=== PATIENT | female | born 1955 ===

== ENCOUNTER 2023-06-17 06:23 | Day surgery (SDC) | payer OTHER, SELFPAY ==
[2023-06-12 12:31] VITALS: BMI 23.7
[2023-06-12 14:26] LABS: Hematocrit 34.5 % (37.0-47.0); Hemoglobin 10.8 g/dL (12.0-16.0); Mean Corp Hgb Conc. 31.3 g/dL (33.0-37.0); Mean Corpuscular Hgb 29.2 pg (27.0-31.0); Mean Corpuscular Volume 93.2 fL (81.0-99.0); Mean Platelet Volume 11.4 fL (7.4-10.4); Platelet Count 364 10^3/uL (130-400); Red Cell Dist. Width 12.6 % (11.5-14.5)
[2023-06-12 14:51] LABS: Blood Urea Nitrogen 23 mg/dl (7-17); Calcium 9.5 mg/dl (8.4-10.2); Carbon Dioxide 29 mmol/L (22-30); Chloride 101 mmol/L (98-107); Estimated Creatinine Clearance 63 ml/min; Glucose 91 mg/dl (70-99); Sodium 140 mmol/L (135-145); eGFR > 60.00
[2023-06-17] VITALS (10 sets, daily range): BP systolic 136–173; BP diastolic 60–84; BMI 23.7
[2023-06-17] MEDS: NORMOSOL-R 1000 IV (08:13)
[2023-06-17] MEDS: Pyridium 200 MG PO (08:14)
--- NOTE | 2023-06-17 13:52 | PTCARENOTE ---
Patient states she voided a small amount. Bladder scanned patient for 200 ml of urine post void. Patient drinking water to see if she can void more.
--- NOTE | 2023-06-17 14:14 | PTCARENOTE ---
Report passed onto Isa TAPIA at 1415.
== END 2023-06-17 15:15 | disposition home or self-care (01) ==
LOC: SDS 06:23
PROVIDERS: ATTENDING PHYSICIAN Obstetrics & Gynecology; FAMILY PHYSICIAN Internal Medicine
DX: N81.3 Complete uterovaginal prolapse (principal); N39.3 Stress incontinence (female) (male); D25.9 Leiomyoma of uterus, unspecified; D27.1 Benign neoplasm of left ovary; N36.41 Hypermobility of urethra
CPT/HCPCS: 58542; 57425; 57288; 57250; 88305; 36415; 80048; 85027; 86850; 86900; 86901; C1763; C1771